=== PATIENT | female | born 1980 | race Caucasian/White ===

== ENCOUNTER 2017-04-17 14:12 | Inpatient (IN) | payer BC ==
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
[2017-04-17 17:51] VITALS: BMI 35.3
[2017-04-17] MEDS ORDERED: ACETAMINOPHEN TAB 325 MG TAB PO PRN (17:58)
[2017-04-17] MEDS ORDERED: LORazepam 1 MG TAB PO PRN (17:58)
[2017-04-17] MEDS ORDERED: MAGNESIUM HYDROXIDE 2,400 MG/10 ML CUP PO PRN (17:58)
[2017-04-17] MEDS: DIAZEPAM 5 MG TAB PO SCH (20:34)
[2017-04-17] MEDS: QUEtiapine 100 MG TAB PO SCH (20:34)
[2017-04-18] MEDS: DIAZEPAM 5 MG TAB PO SCH ×2 (09:21→20:34)
[2017-04-18] MEDS: CITALOPRAM HYDROBROMIDE 20 MG TAB PO SCH (09:21)
[2017-04-18 11:22] LABS: Basophils % (A) 0 %; CH 31.1; Eosinophils # (A) 0.1 k/uL (0-0.7); Eosinophils % (A) 2 %; HCT 42.7 % (34.0-46.0); HDW 2.58; HGB 14.5 gm/dL (11.4-16.0); Luc % (Auto) 1; Lymphocytes # (A) 1.2 k/uL (1.0-4.8); Lymphocytes % (A) 17 %; MCH 31.2 pg (25.0-35.0); MCHC 33.9 g/dL (31.0-37.0); MCV 92.1 fL (80.0-100.0); Mean Platelet Volume 7.4; Monocytes # (A) 0.5 k/uL (0-1.0); Monocytes % (A) 6 %; Neutrophils # (A) 5.2 k/uL (1.3-7.7); Neutrophils % (A) 73 %; RBC 4.63 m/uL (3.80-5.40); RDW 13.7 % (11.5-15.5); WBC 7.1 k/uL (3.8-10.6); WBC (Perox) 7.09
[2017-04-18 11:32] LABS: ALT 38 U/L (9-52); AST 35 U/L (14-36); Alkaline Phosphatase 60 U/L (38-126); Anion Gap 11 mmol/L; Bilirubin, Delta 0.2 mg/dL (0.0-0.2); Blood Urea Nitrogen 14 mg/dL (7-17); Calcium 9.7 mg/dL (8.4-10.2); Carbon Dioxide 25 mmol/L (22-30); Chloride 107 mmol/L (98-107); Glucose 75 mg/dL (74-99); Non-African American GFR(MDRD) >60 (>60 ml/min/1.73 sqM); Sodium 143 mmol/L (137-145); Total Bilirubin 0.6 mg/dL (0.2-1.3); Total Protein 7.1 g/dL (6.3-8.2)
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
--- NOTE | 2017-04-18 15:46 | P.CONS ---
History of Present Illness - Reason for Consult Consult date: 04/18/17 Medical history and physical in a patient with to the psych floor - Chief Complaint Agitation - History of Present Illness His is a 36-year-old female that is admitted to the psych floor after patient was noted to have some bizarre behavior including trying to remove her closest and agitation. Patient apparently had to be restrained on by multiple adults. At the time of my evaluation patient is more appropriate states that she did not know what she was doing at that time does state that she has a history of using marijuana Patient's main complaints include some soreness in her wrists and her left ankle However patient is able to bear weight and is able to have good range of motion in bilateral wrist Patient denies having any headaches blurry vision nausea vomiting chest pain difficulty breathing abdominal pain urinary urgency or frequency Review of Systems All systems: negative (Noted in HPI) Past Medical History Past Medical History: No Reported History Additional Past Medical History / Comment(s): 11/18/15 Pt presented to [facility] ER with believing she took too many of her Seroquels while sleep walking last nite. There were 10 seoquel missing. She had vomiting and is feeling very tired. She is admitted with clinical impression of accidental drug ingestion. History of Any Multi-Drug Resistant Organisms: None Reported Past Surgical History: Uterine Ablation Additional Past Surgical History / Comment(s): IUD placement. Past Anesthesia/Blood Transfusion Reactions: No Reported Reaction Smoking Status: Former smoker - Past Family History Mother Family Medical History: Hypertension, Osteoarthritis (OA) Additional Family Medical History / Comment(s): Mother is 63 yrs old. She also has anxiety and depression. Father Family Medical History: Coronary Artery Disease (CAD), Diabetes Mellitus, Hypertension Additional Family Medical History / Comment(s): Father is 64 yrs old. He also has back problems, cardiac stents. Medications and Allergies Home Medications Medication Instructions Recorded Confirmed Type Citalopram Hydrobromide [CeleXA] 40 mg PO DAILY 03/12/14 04/17/17 History Diazepam [Valium] 5 mg PO BID 04/17/17 04/17/17 History Allergies Allergy/AdvReac Type Severity Reaction Status Date / Time prochlorperazine edisylate Allergy Unknown Verified 04/17/17 17:55 [From Compazine] prochlorperazine maleate Allergy Unknown Verified 04/17/17 17:55 [From Compazine] Physical Exam Vitals: Vital Signs Temp Pulse Pulse Resp BP BP Pulse Ox 04/18/17 06:40 98.3 F 73 18 133/66 04/17/17 17:28 99.1 F 83 16 133/79 04/17/17 16:47 97.8 F 67 16 130/78 98 Physical exam Gen. appearance oriented 3 in no distress Neck is supple no JVD Lungs good air entry clear to auscultation no rhonchi or wheezing Heart S1-S2 heard regular rate and rhythm no murmurs appreciated Abdomen is soft nontender no organomegaly bowel sounds are intact Neurologically cranial nerves II-12 grossly intact no focal motor or sensory deficits noted Skin no abnormalities appreciated Results CBC & Chem 7: 04/18/17 10:45 04/18/17 10:45 Assessment and Plan Plan: #1 acute psychosis with suspected overuse of medication #2 bipolar depression #3 polysubstance use Plan No further workup is necessary from a medical standpoint Patient's bruises will be resolved with time No medications are necessary Patient is bearing weight no other recommendations including radiologic examinations Thank you for the consultation please call with any questions or any further complaints from the patient for reevaluation
[2017-04-18] MEDS: QUEtiapine 100 MG TAB PO SCH (20:34)
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
[2017-04-19] MEDS: DIAZEPAM 5 MG TAB PO SCH (09:12)
[2017-04-19] MEDS: CITALOPRAM HYDROBROMIDE 20 MG TAB PO SCH (09:12)
[2017-04-19] MEDS: DIAZEPAM 2 MG TAB PO SCH ×2 (11:08→21:42)
[2017-04-19] MEDS ORDERED: LITHIUM CARBONATE 300 MG CAP PO SCH (21:00)
[2017-04-19] MEDS ORDERED: PRAZOSIN 1 MG CAP PO SCH (21:00)
[2017-04-20] MEDS: DIAZEPAM 2 MG TAB PO SCH ×2 (08:44→20:48)
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
[2017-04-20] MEDS: MAG HYDROX/AL HYDROX/SIMETH 30 ML CUP PO PRN ×2 (08:45→14:47)
[2017-04-20] MEDS: PRAZOSIN 1 MG CAP PO SCH (20:47)
[2017-04-20] MEDS ORDERED: LITHIUM CARBONATE 300 MG CAP PO SCH (21:00)
[2017-04-21 06:27] VITALS: RESP 16
[2017-04-21] MEDS: DIAZEPAM 2 MG TAB PO SCH (09:36)
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
[2017-04-21] MEDS: MAG HYDROX/AL HYDROX/SIMETH 30 ML CUP PO PRN (14:40)
[2017-04-21] MEDS: PRAZOSIN 1 MG CAP PO SCH (20:53)
[2017-04-21] MEDS ORDERED: LITHIUM CARBONATE 300 MG CAP PO SCH (21:00)
[2017-04-22 06:43] VITALS: BP 108/64; PULSE 73; TEMP 97.9
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
== END 2017-04-22 10:35 | disposition home or self-care (01) | DRG 885 ==
LOC: EC 14:12 → 3MHU 16:36
PROVIDERS: ADMIT Psychiatry & Neurology Addiction Medicine; ATTEND Psychiatry & Neurology Addiction Medicine
DX: F31.10 Bipolar disorder, current episode manic without psychotic features, unspecified (principal); R45.851 Suicidal ideations; F41.9 Anxiety disorder, unspecified; F41.0 Panic disorder [episodic paroxysmal anxiety]; F10.20 Alcohol dependence, uncomplicated; F12.20 Cannabis dependence, uncomplicated; F43.10 Post-traumatic stress disorder, unspecified; G43.909 Migraine, unspecified, not intractable, without status migrainosus; F51.3 Sleepwalking [somnambulism]; E66.3 Overweight; Z91.5 Personal history of self-harm; Z87.891 Personal history of nicotine dependence; Z79.899 Other long term (current) drug therapy; Z88.8 Allergy status to other drugs, medicaments and biological substances; Z62.810 Personal history of physical and sexual abuse in childhood; Z81.8 Family history of other mental and behavioral disorders; Z82.49 Family history of ischemic heart disease and other diseases of the circulatory system
CPT/HCPCS: 80053; 80178; 80306; 81025; 82075; 82248; 84443; 85025; 99285

== ENCOUNTER → 2018-04-19 | Outpatient (CLI) | payer BC ==
--- NOTE | 2018-04-19 09:01 | US ---
EXAMINATION TYPE: US pelvis complete transvag DATE OF EXAM: 04/19/2018 COMPARISON: US 02/06/2015 CLINICAL HISTORY: N93.0 Post coital bleeding. Breakthrough bleeding with IUD TECHNIQUE: Transabdominal sonographic images of the pelvis were acquired. Transvaginal sonographic images were medically necessary to better assess the following anatomy: uterus and ovaries Date of LMP: Patient states she hasn't had a cycle in about 10 years due to IUD EXAM MEASUREMENTS: Uterus: 8.9 x 5.0 x 4.8 cm Endometrial Stripe: 0.4 cm Right Ovary: 4.2 x 2.0 x 2.1 cm Left Ovary: 4.0 x 2.8 x 2.9 cm 1. Uterus: Anteverted wnl 2. Endometrium: wnl, IUD visualized within mid/fundal portion of the endometrium 3. Right Ovary: Two cystic areas visualized, largest measuring 1.7 x 1.3 x 1.5 cm 4. Left Ovary: Cystic area visualized measuring 2.6 x 2.5 x 2.2 cm 5. Bilateral Adnexa: wnl 6. Posterior cul-de-sac: Tiny amount of free fluid visualized IMPRESSION: 1. Sonographically appropriately placed intrauterine device seen midline within the endometrium bridg ing the lower and upper uterine segments. No endometrial thickening. 2. Left ovarian cyst appears morphologically different than the prior of 2014 and is smaller in size representing a new left ovarian cyst. This is likely physiologic in a premenopausal female.
== END | disposition home or self-care (01) ==
LOC: RADUSWWP 07:13
PROVIDERS: ATTEND Obstetrics & Gynecology
DX: N83.202 Unspecified ovarian cyst, left side (principal); Z97.5 Presence of (intrauterine) contraceptive device
CPT/HCPCS: 76830; 76856

== ENCOUNTER → 2018-04-25 | Outpatient (CLI) | payer BC ==
[2018-04-25 18:04] LABS: T4, Free (Free Thyroxine) 0.89 ng/dL (0.78-2.19)
== END | disposition home or self-care (01) ==
LOC: LABWHC1 17:14
PROVIDERS: ATTEND Obstetrics & Gynecology
DX: N92.1 Excessive and frequent menstruation with irregular cycle (principal)
CPT/HCPCS: 36415; 83001; 83002; 84146; 84439; 84443

== ENCOUNTER → 2018-10-03 | Outpatient (CLI) | payer BC ==
--- NOTE | 2018-10-04 16:28 | MM ---
Reason for exam: screening (asymptomatic). Baseline mammogram. History: Taking hormonal contraceptives beginning at age 18. Physical Findings: Nurse did not find any significant physical abnormalities on exam. MG 3D Screening Mammo W/Cad Bilateral CC and MLO view(s) were taken. The breast tissue is heterogeneously dense. This may lower the sensitivity of mammography. There are benign - appearing round calcification balaterally. No discrete abnormality. These results were verbally communicated with the patient and result sheet given to the patient on 10/03/18. ASSESSMENT: Benign, BI-RAD 2 RECOMMENDATION: Routine screening mammogram of both breasts at age 42.
== END | disposition home or self-care (01) ==
LOC: RADMAMWWP 08:15
PROVIDERS: ATTEND Obstetrics & Gynecology
DX: Z12.31 Encounter for screening mammogram for malignant neoplasm of breast (principal)
CPT/HCPCS: 77063; 77067

== ENCOUNTER → 2022-04-13 | Outpatient (CLI) | payer MEDICAID, OTHER ==
--- NOTE | 2022-04-13 07:47 | USB ---
Patient History: Menarche at age 13. First Full-Term at age 29. Breast cancer. Currently using Hormonal Contraceptives, starting at age 18. Prior Study Comparison: 10/03/2018 Bilateral Screening Mammogram, [facility]. Findings: The whole breast of the right breast, the axilla of the right breast and the retroareolar of the right breast were scanned. Electronically signed and approved by: Wagner De La Vega M.D. Radiologis
== END | disposition home or self-care (01) ==
LOC: RADUSWWP 07:01
PROVIDERS: ATTEND Family Medicine
DX: N63.15 Unspecified lump in the right breast, overlapping quadrants (principal)

== ENCOUNTER → 2023-05-19 | Outpatient (CLI) | payer BC ==
--- NOTE | 2023-05-20 08:26 | MM ---
Reason for Exam: Screening (asymptomatic). Last mammogram was performed 4 year(s) and 7 month(s) ago. Patient History: Menarche at age 13. First Full-Term at age 29. Premenopausal. Breast cancer. Currently using Hormonal Contraceptives, starting at age 18. Prior Study Comparison: 10/03/2018 Bilateral Screening Mammogram, [facility]. Tissue Density: The breast tissue is heterogeneously dense. This may lower the sensitivity of mammography. Findings: Analyzed By CAD. There is no suspicious group of microcalcifications or new suspicious mass in either breast. Overall Assessment: Negative, BI-RAD 1 Management: Screening Mammogram of both breasts in 1 year. A clinical breast exam by your physician is recommended on an annual basis and results should be correlated with mammographic findings. Electronically signed and approved by: Grant Steele D.O.
== END | disposition home or self-care (01) ==
LOC: RADMAMWWP 14:27
PROVIDERS: ATTEND Family Medicine
DX: Z12.31 Encounter for screening mammogram for malignant neoplasm of breast (principal); Z78.0 Asymptomatic menopausal state
CPT/HCPCS: 77067

== ENCOUNTER 2023-08-15 11:58 | Emergency (ER) | payer BC ==
[2023-08-15 12:34] VITALS: RESP 18
[2023-08-15] MEDS ORDERED: KETOROLAC 15 MG/ML 1 ML VIAL IVP STA (12:40)
--- NOTE | 2023-08-15 12:40 | ED ---
General Adult HPI - General Chief complaint: Abdominal Pain Stated complaint: ride side and back pain Time Seen by Provider: 08/15/23 12:26 Source: patient, RN notes reviewed Mode of arrival: ambulatory Limitations: no limitations - History of Present Illness Initial comments: Patient is a pleasant 42-year-old female presenting to the emergency department with concern for right-sided rib pain. Patient did have coughing and infection that she did go to urgent care a couple weeks ago and has had some of the symptoms since that time. Symptoms seem a little bit worse this morning. Patient has most of her discomfort right posterior lateral mid ribs. Patient states discomfort does increase with deep breaths and position changes. No dyspnea. No fever. No abdominal pain. - Related Data Previous Rx's Medication Instructions Recorded [place] Carbonate 900 mg PO HS #90 cap 04/22/17 Prazosin [Minipress] 2 mg PO HS #60 cap 04/22/17 Ibuprofen [Motrin] 600 mg PO Q6HR PRN #20 tab 08/15/23 Allergies Allergy/AdvReac Type Severity Reaction Status Date / Time prochlorperazine edisylate Allergy Unknown Verified 08/15/23 12:09 [From Compazine] prochlorperazine maleate Allergy Unknown Verified 08/15/23 12:09 [From Compazine] Review of Systems ROS Statement: Those systems with pertinent positive or pertinent negative responses have been documented in the HPI. ROS Other: All systems not noted in ROS Statement are negative. Constitutional: Denies: fever Eyes: Denies: eye pain ENT: Denies: ear pain Respiratory: Reports: as per HPI. Denies: dyspnea Cardiovascular: Reports: as per HPI Endocrine: Denies: fatigue Gastrointestinal: Denies: abdominal pain, vomiting Genitourinary: Denies: dysuria, frequency, hematuria Musculoskeletal: Reports: as per HPI Past Medical History Past Medical History: No Reported History Additional Past Medical History / Comment(s): 11/18/15 Pt presented to [facility] ER with believing she took too many of her Seroquels while sleep walking last nite. There were 10 seoquel missing. She had vomiting and is feeling very tired. She is admitted with clinical impression of accidental drug ingestion. History of Any Multi-Drug Resistant Organisms: None Reported Past Surgical History: Uterine Ablation Additional Past Surgical History / Comment(s): IUD placement. Past Anesthesia/Blood Transfusion Reactions: No Reported Reaction Past Psychological History: Anxiety, Bipolar, Depression Smoking Status: Former smoker Past Alcohol Use History: Occasional Past Drug Use History: Marijuana - Past Family History Mother Family Medical History: Hypertension, Osteoarthritis (OA) Additional Family Medical History / Comment(s): Mother is 63 yrs old. She also has anxiety and depression. Father Family Medical History: Coronary Artery Disease (CAD), Diabetes Mellitus, Hypertension Additional Family Medical History / Comment(s): Father is 64 yrs old. He also has back problems, cardiac stents. General Exam Limitations: no limitations General appearance: alert, in no apparent distress Head exam: Present: normocephalic Eye exam: Present: normal appearance Neck exam: Present: normal inspection Respiratory exam: Present: normal lung sounds bilaterally, chest wall tenderness (Mild tenderness right lateral mid ribs, slightly posterior) Cardiovascular Exam: Present: regular rate, normal rhythm Expanded Peripheral pulses: 2+: Radial (R), Radial (L), Dorsalis Pedis (R), Dorsalis Pedis (L) GI/Abdominal exam: Present: soft, normal bowel sounds. Absent: distended, tenderness, guarding, rebound, rigid, pulsatile mass Extremities exam: Present: normal inspection. Absent: pedal edema, calf tenderness Neurological exam: Present: alert Psychiatric exam: Present: normal affect, normal mood Skin exam: Present: normal color Course Vital Signs 08/15/23 08/15/23 12:06 14:05 Temperature 98.0 F Pulse Rate 90 68 Respiratory 18 18 Rate Blood Pressure 122/80 125/79 O2 Sat by Pulse 99 99 Oximetry Medical Decision Making - Medical Decision Making Was pt. sent in by a medical professional or institution (, PA, SILVERSMITH APPRENTICE, urgent care, hospital, or fpc...) When possible be specific @ -No Did you speak to anyone other than the patient for history (EMS, parent, family, police, friend...)? What history was obtained from this source @ -Family is present that does confirm history Did you review nursing and triage notes (agree or disagree)? Why? @ -I reviewed and agree with nursing and triage notes Were old charts reviewed (outside hosp., previous admission, EMS record, old EKG, old radiological studies, urgent care reports/EKG's, fpc records)? Report findings @ -No old charts were reviewed Differential Diagnosis (chest pain, altered mental status, abdominal pain women, abdominal pain men, vaginal bleeding, weakness, fever, dyspnea, syncope, headache, dizziness, GI bleed, back pain, seizure, CVA, palpatations, mental health, musculoskeletal)? @ -Differential Chest Pain: Stable Angina, Unstable Angina, STEMI, NSTEMI Aortic Dissection, Pneumothorax, Musculoskeletal, Esophageal Spasm GERD, Cholecystitis, Pancreatitis, Zoster, this is not meant to be an all-inclusive list. EKG interpreted by me (3pts min.). @ - X-rays interpreted by me (1pt min.). @ -Chest x-ray shows no acute process CT interpreted by me (1pt min.). @ -None done U/S interpreted by me (1pt. min.). @ -None done What testing was considered but not performed or refused? (CT, X-rays, U/S, labs)? Why? @ -None What meds were considered but not given or refused? Why? @ -None Did you discuss the management of the patient with other professionals (professionals i.e. , PA, SILVERSMITH APPRENTICE, lab, RT, psych nurse, social economist, trademark attorney, teacher, traffic maintenance officer, ed case manager)? Give summary @ -No Was smoking cessation discussed for >3mins.? @ -No Was critical care preformed (if so, how long)? @ -No Were there social determinants of health that impacted care today? How? (Homelessness, low income, unemployed, alcoholism, drug addiction, transportation, low edu. Level, literacy, decrease access to med. care, [facility], rehab)? @ -No Was there de-escalation of care discussed even if they declined (Discuss DNR or withdrawal of care, Hospice)? DNR status @ -No What co-morbidities impacted this encounter? (DM, HTN, Smoking, COPD, CAD, Cancer, CVA, ARF, Chemo, Hep., AIDS, mental health diagnosis, sleep apnea, morbid obesity)? @ -None Was patient admitted / discharged? Hospital course, mention meds given and route, prescriptions, significant lab abnormalities, going to OR and other pertinent info. @ -Patient presents with pleuritic-type chest discomfort right lateral following probable bronchitis/viral infection. Patient improved with Toradol. Negative chest x-ray and d-dimer. Patient will be discharged with NSAIDs. Patient updated Undiagnosed new problem with uncertain prognosis? @ -No Drug Therapy requiring intensive monitoring for toxicity (Heparin, Nitro, Insulin, Cardizem)? @ -No Were any procedures done? @ -No Diagnosis/symptom? @ -Pleurisy Acute, or Chronic, or Acute on Chronic? @ -Acute Uncomplicated (without systemic symptoms) or Complicated (systemic symptoms)? @ -default Side effects of treatment? @ -No Exacerbation, Progression, or Severe Exacerbation? @ -No Poses a threat to life or bodily function? How? (Chest pain, [place], [place], pneumonia, PE, COPD, DKA, ARF, appy, cholecystitis, CVA, Diverticulitis, Homicidal, Suicidal, threat to staff... and all critical care pts) @ -No - Lab Data Lab Results 08/15/23 Range/Units 13:57 D-Dimer 0.34 (<0.60) mg/L FEU Disposition Clinical Impression: Pleurisy Disposition: HOME SELF-CARE Condition: Stable Instructions (If sedation given, give patient instructions): Pleurisy (ED) Additional Instructions: Please do follow-up with your primary care physician in the next one or 2 days for recheck. Prescriptions at the pharmacy. Return for difficulty breathing, increased pain, change or worsening symptoms or other concerns. Prescriptions: Ibuprofen [Motrin] 600 mg PO Q6HR PRN #20 tab PRN Reason: Pain Is patient prescribed a controlled substance at d/c from ED?: No Referrals: Dayna Degroot MD [Primary Care Provider] - 1-2 days Time of Disposition: 14:55
--- NOTE | 2023-08-15 13:33 | XR ---
EXAMINATION TYPE: XR chest 2V DATE OF EXAM: 08/15/2023 1:28 PM CLINICAL INDICATION:Female, 42 years old with history of Rib pain; H COMPARISON: None. TECHNIQUE: XR chest 2V Frontal and lateral views of the chest. FINDINGS: Lungs/Pleura: There is no evidence of pleural effusion, focal consolidation, or pneumothorax. Pulmonary vascularity: Unremarkable. Heart/mediastinum: Cardiomediastinal silhouette is unremarkable. Musculoskeletal: No acute osseous pathology. IMPRESSION: No acute process.
[2023-08-15 15:06] VITALS: BP 120/75; PULSE 73; TEMP 98.2
== END 2023-08-15 15:03 | disposition home or self-care (01) ==
LOC: EC 11:58
DX: R09.1 Pleurisy (principal); F12.90 Cannabis use, unspecified, uncomplicated; Z86.59 Personal history of other mental and behavioral disorders; Z87.891 Personal history of nicotine dependence; Z88.8 Allergy status to other drugs, medicaments and biological substances
CPT/HCPCS: 36415; 85379; 71046; 99284; 96374; J1885

== ENCOUNTER 2023-09-10 17:26 | Emergency (ER) | payer BC ==
[2023-09-10 17:58] VITALS: RESP 18; TEMP 98.4
[2023-09-10] MEDS ORDERED: SODIUM CHLORIDE 0.9% 1,000 ML IV ONE (18:00)
[2023-09-10 18:50] LABS: ALT 33 U/L (4-34); AST 34 U/L (14-36); African American GFR (CKD) >90 (>60 ml/min/1.73 sqM); Albumin 4.5 g/dL (3.5-5.0); Alkaline Phosphatase 61 U/L (38-126); Anion Gap 13 mmol/L; Blood Urea Nitrogen 7 mg/dL (7-17); Calcium 9.3 mg/dL (8.4-10.2); Carbon Dioxide 17 mmol/L (22-30); Chloride 107 mmol/L (98-107); Glucose 104 mg/dL (74-99); Non-African American GFR(CKD) >90 (>60 ml/min/1.73 sqM); Sodium 137 mmol/L (137-145); Total Bilirubin 0.5 mg/dL (0.2-1.3); Total Protein 7.5 g/dL (6.3-8.2)
[2023-09-10 18:52] LABS: Potassium 4.2 mmol/L (3.5-5.1)
[2023-09-10 18:55] LABS: Appearance,Urine Cloudy (Clear); Bacteria,Urine Rare /hpf; Bilirubin,Urine Negative (Negative); Blood,Urine Negative (Negative); Color,Urine Colorless; Glucose,Urine (UA) Negative (Negative); Ketones,Urine Negative (Negative); Leukocyte Esterase,Urine Moderate (Negative); Mucus,Urine Occasional /hpf; Nitrite,Urine Negative (Negative); PH, Urine 5.5 (5.0-8.0); Protein,Urine Negative (Negative); RBC,Urine 8 /hpf (0-5); Specific Gravity,Urine 1.012 (1.001-1.035); Squamous Epithelial Cell,Urine 6 /hpf (0-4); Urobilinogen,Urine <2.0 mg/dL (<2.0); WBC,Urine 4 /hpf (0-5)
[2023-09-10 18:56] LABS: Basophils # (A) 0.1 k/uL (0-0.2); Basophils % (A) 1 %; Eosinophils # (A) 0.2 k/uL (0-0.7); Eosinophils % (A) 2 %; HCT 44.1 % (34.0-46.0); HGB 15.2 gm/dL (11.4-16.0); Lymphocytes # (A) 1.7 k/uL (1.0-4.8); Lymphocytes % (A) 19 %; MCH 29.8 pg (25.0-35.0); MCHC 34.4 g/dL (31.0-37.0); MCV 86.6 fL (80.0-100.0); Mean Platelet Volume 7.6; Monocytes # (A) 0.4 k/uL (0-1.0); Monocytes % (A) 4 %; Neutrophils # (A) 6.4 k/uL (1.3-7.7); Neutrophils % (A) 73 %; Platelet Count 222 k/uL (150-450); RBC 5.09 m/uL (3.80-5.40); WBC 8.9 k/uL (3.8-10.6)
--- NOTE | 2023-09-10 19:40 | ED ---
General Adult HPI - General Chief complaint: GI Bleed Stated complaint: GI Bleed Time Seen by Provider: 09/10/23 17:51 Source: patient Mode of arrival: ambulatory Limitations: no limitations - History of Present Illness Initial comments: Patient is a 42-year-old female who presents to the emergency Department today with complaint of one month of diarrhea. Patient reports that she is recently had upper respiratory infection she was given antibiotics and 2 courses of steroids. She developed diarrhea and since that time has had multiple episodes of diarrhea daily. She reports that today she had 15 episodes of watery diarrhea while at work and towards in the day she noted that she had some bright red blood in the diarrhea. Patient also reports diffuse abdominal cramping so she decided to come the ER for evaluation. No fevers or chills. No previous GI history. No previous GI surgeries. - Related Data Previous Rx's Medication Instructions Recorded [place] Carbonate 900 mg PO HS #90 cap 04/22/17 Prazosin [Minipress] 2 mg PO HS #60 cap 04/22/17 Ibuprofen [Motrin] 600 mg PO Q6HR PRN #20 tab 08/15/23 Ondansetron Odt [Zofran Odt] 4 mg PO Q8HR PRN #12 tab 09/10/23 predniSONE [Deltasone] 40 mg PO DAILY 5 Days #10 tab 09/10/23 Allergies Allergy/AdvReac Type Severity Reaction Status Date / Time prochlorperazine edisylate Allergy Unknown Verified 09/10/23 17:54 [From Compazine] prochlorperazine maleate Allergy Unknown Verified 09/10/23 17:54 [From Compazine] Review of Systems ROS Statement: Those systems with pertinent positive or pertinent negative responses have been documented in the HPI. ROS Other: All systems not noted in ROS Statement are negative. Past Medical History Past Medical History: No Reported History Additional Past Medical History / Comment(s): 11/18/15 Pt presented to [facility] ER with believing she took too many of her Seroquels while sleep walking last nite. There were 10 seoquel missing. She had vomiting and is feeling very tired. She is admitted with clinical impression of accidental drug ingestion. History of Any Multi-Drug Resistant Organisms: None Reported Past Surgical History: Uterine Ablation Additional Past Surgical History / Comment(s): IUD placement. Past Anesthesia/Blood Transfusion Reactions: No Reported Reaction Past Psychological History: Anxiety, Bipolar, Depression Smoking Status: Former smoker Past Alcohol Use History: Occasional Past Drug Use History: Marijuana - Past Family History Mother Family Medical History: Hypertension, Osteoarthritis (OA) Additional Family Medical History / Comment(s): Mother is 63 yrs old. She also has anxiety and depression. Father Family Medical History: Coronary Artery Disease (CAD), Diabetes Mellitus, Hypertension Additional Family Medical History / Comment(s): Father is 64 yrs old. He also has back problems, cardiac stents. General Exam Limitations: no limitations General appearance: alert Eye exam: Present: normal appearance ENT exam: Present: normal exam, mucous membranes moist Respiratory exam: Absent: respiratory distress Cardiovascular Exam: Present: regular rate GI/Abdominal exam: Present: soft, tenderness, normal bowel sounds. Absent: guarding, rebound Extremities exam: Present: normal inspection Neurological exam: Present: alert, oriented X3 Psychiatric exam: Present: normal affect, normal mood Skin exam: Present: warm, dry Course Vital Signs 09/10/23 09/10/23 17:46 22:16 Temperature 98.4 F Pulse Rate 88 76 Respiratory 18 18 Rate Blood Pressure 146/92 137/85 O2 Sat by Pulse 98 98 Oximetry Medical Decision Making - Medical Decision Making Was pt. sent in by a medical professional or institution (, PA, MEMBER OF THE LEGISLATIVE COUNCIL, urgent care, hospital, or group home...) When possible be specific @ -No Did you speak to anyone other than the patient for history (EMS, parent, family, police, friend...)? What history was obtained from this source @ -No Did you review nursing and triage notes (agree or disagree)? Why? @ -I reviewed and agree with nursing and triage notes Were old charts reviewed (outside hosp., previous admission, EMS record, old EKG, old radiological studies, urgent care reports/EKG's, group home records)? Report findings @ -No old charts were reviewed Differential Diagnosis (chest pain, altered mental status, abdominal pain women, abdominal pain men, vaginal bleeding, weakness, fever, dyspnea, syncope, headache, dizziness, GI bleed, back pain, seizure, CVA, palpatations, mental health)? @ -not applicable EKG interpreted by me (3pts min.). @ -As above X-rays interpreted by me (1pt min.). @ -None done CT interpreted by me (1pt min.). @ -No free air, inflammation is noted in the right lower quadrant U/S interpreted by me (1pt. min.). @ -None done What testing was considered but not performed or refused? (CT, X-rays, U/S, labs)? Why? @ -None What meds were considered but not given or refused? Why? @ -None Did you discuss the management of the patient with other professionals (mason patterson i.e. , PA, MEMBER OF THE LEGISLATIVE COUNCIL, lab, RT, psych nurse, director of social media marketing, cartridge belt puncher, teacher, medical laboratory technical officer, case filler)? Give summary @ -No Was smoking cessation discussed for >3mins.? @ -No Was critical care preformed (if so, how long)? @ -No Were there social determinants of health that impacted care today? How? (Homelessness, low income, unemployed, alcoholism, drug addiction, transportation, low edu. Level, literacy, decrease access to med. care, long term, rehab)? @ -No Was there de-escalation of care discussed even if they declined (Discuss DNR or withdrawal of care, Hospice)? DNR status @ -No What co-morbidities impacted this encounter? (DM, HTN, Smoking, COPD, CAD, Cancer, CVA, ARF, Chemo, Hep., AIDS, mental health diagnosis, sleep apnea, morbid obesity)? @ -None Was patient admitted / discharged? Hospital course, mention meds given and route, prescriptions, significant lab abnormalities, going to OR and other pertinent info. @ Discharged Patient was seen and evaluated, patient has had weeks of crampy abdominal pain and frequent diarrhea today she noted some blood. Patient also having some nausea. Labs are obtained and are unremarkable computed tomography scan of the abdomen was obtained and is suggestive of possible Crohn's disease. These results were discussed the patient. At this time patient states she is comfortable plan for discharge home she's been dealing with this for a month already she'll follow up with GI. I advised that if GI has a long wait she can contact her insurance for a list of other GI specialist for insurance and she did start calling around for follow-up. Patient will be discharged home with some steroids help the inflammation. Return parameters were discussed with patient was discharged in stable condition. Undiagnosed new problem with uncertain prognosis? @ Yes Drug Therapy requiring intensive monitoring for toxicity (Heparin, Nitro, Insuli n, Cardizem)? @ -No Were any procedures done? @ -No Diagnosis/symptom? @ Colitis concerning for Crohn's disease Acute, or Chronic, or Acute on Chronic? @ -default Uncomplicated (without systemic symptoms) or Complicated (systemic symptoms)? @ -default Side effects of treatment? @ -No Exacerbation, Progression, or Severe Exacerbation? @ -No Poses a threat to life or bodily function? How? (Chest pain, [place], [place], pneumonia, PE, COPD, DKA, ARF, appy, cholecystitis, CVA, Diverticulitis, Homicidal, Suicidal, threat to staff... and all critical care pts) @ -No - Lab Data Result diagrams: 09/10/23 18:04 09/10/23 18:04 Lab Results 09/10/23 09/10/23 09/10/23 Range/Units 18:04 18:04 18:04 WBC 8.9 (3.8-10.6) k/uL RBC 5.09 (3.80-5.40) m/uL Hgb 15.2 (11.4-16.0) gm/dL Hct 44.1 (34.0-46.0) % MCV 86.6 (80.0-100.0) fL MCH 29.8 (25.0-35.0) pg MCHC 34.4 (31.0-37.0) g/dL RDW 13.0 (11.5-15.5) % Plt Count 222 (150-450) k/uL MPV 7.6 Neutrophils % 73 % Lymphocytes % 19 % Monocytes % 4 % Eosinophils % 2 % Basophils % 1 % Neutrophils # 6.4 (1.3-7.7) k/uL Lymphocytes # 1.7 (1.0-4.8) k/uL Monocytes # 0.4 (0-1.0) k/uL Eosinophils # 0.2 (0-0.7) k/uL Basophils # 0.1 (0-0.2) k/uL Sodium 137 (137-145) mmol/L Potassium 4.2 (3.5-5.1) mmol/L Chloride 107 (98-107) mmol/L Carbon Dioxide 17 L (22-30) mmol/L Anion Gap 13 mmol/L BUN 7 (7-17) mg/dL Creatinine 0.67 (0.52-1.04) mg/dL Est GFR (CKD-EPI)AfAm >90 (>60 ml/min/1.73 sqM) Est GFR (CKD-EPI)NonAf >90 (>60 ml/min/1.73 sqM) Glucose 104 H (74-99) mg/dL Calcium 9.3 (8.4-10.2) mg/dL Total Bilirubin 0.5 (0.2-1.3) mg/dL AST 34 (14-36) U/L ALT 33 (4-34) U/L Alkaline Phosphatase 61 (38-126) U/L Total Protein 7.5 (6.3-8.2) g/dL Albumin 4.5 (3.5-5.0) g/dL Urine Color Colorless Urine Appearance Cloudy H (Clear) Urine pH 5.5 (5.0-8.0) Ur Specific [place] 1.012 (1.001-1.035) Urine Protein Negative (Negative) Urine Glucose (UA) Negative (Negative) Urine Ketones Negative (Negative) Urine Blood Negative (Negative) Urine Nitrite Negative (Negative) Urine Bilirubin Negative (Negative) Urine Urobilinogen <2.0 (<2.0) mg/dL Ur Leukocyte Esterase Moderate H (Negative) Urine RBC 8 H (0-5) /hpf Urine WBC 4 (0-5) /hpf Ur Squamous Epith Cells 6 H (0-4) /hpf Urine Bacteria Rare H (None) /hpf Urine Mucus Occasional H (None) /hpf Disposition Clinical Impression: Diarrhea, Terminal ileitis Disposition: HOME SELF-CARE Condition: Stable Instructions (If sedation given, give patient instructions): Crohn Disease (ED) Prescriptions: predniSONE [Deltasone] 40 mg PO DAILY 5 Days #10 tab Ondansetron Odt [Zofran Odt] 4 mg PO Q8HR PRN #12 tab PRN Reason: Nausea Is patient prescribed a controlled substance at d/c from ED?: No Referrals: Dayna Degroot MD [Primary Care Provider] - 1-2 days
[2023-09-10] MEDS ORDERED: ONDANSETRON 4 MG/2 ML VIAL IVP STA (19:44)
--- NOTE | 2023-09-10 20:18 | CT ---
EXAMINATION TYPE: CT abdomen pelvis w con CT DLP: 1078.8 mGycm, Automated exposure control for dose reduction was used. DATE OF EXAM: 09/10/2023 8:06 PM COMPARISON: none CLINICAL INDICATION:Female, 42 years old with history of abdominal pain; Lower abdominal pain and val sea TECHNIQUE: Axial CT of the ;CT abdomen pelvis w con;Sagittal and coronal reformats were created on a separate workstation. Contrast used:100 mL of Isovue 300 with IV Contrast, (none if empty) Oral contrast used: without Oral Contrast (none if empty) FINDINGS: LOWER CHEST: Unremarkable ABDOMEN LIVER: Unremarkable GALLBLADDER AND BILE DUCTS: Unremarkable. PANCREAS: Unremarkable. SPLEEN: Unremarkable. ADRENAL GLANDS: Unremarkable. KIDNEYS AND URETERS: No evidence of hydronephrosis or renal calculus. The ureters are unremarkable. PELVIS BLADDER: Unremarkable REPRODUCTIVE: Intrauterine device seen within the endometrium. Left ovarian cyst measuring up to 3.7 cm ABDOMEN & PELVIS STOMACH AND BOWEL: Circumferential wall thickening of the terminal ileum with fatty deposition and hy peremic mucosa series 201 image 54. No evidence of bowel obstruction. Small hiatal hernia. The append ix is normal. PERITONEUM/RETROPERITONEUM: No evidence of pneumoperitoneum or free fluid. VASCULATURE: No evidence of aortic aneurysm. MUSCULOSKELETAL: No acute osseous abnormalities LYMPH NODES: No gross evidence for lymphadenopathy. SOFT TISSUE/ABDOMINAL WALL: Fat-containing umbilical hernia. IMPRESSION: 1. Submucosal fat deposition of the terminal ileum with hyperemic mucosa. Correlate for signs and sy mptoms of Crohn's disease/enteritis. The appendix normal. No additional findings to suggest acute ant erior abdominal process. 2. IUD in appropriate position. 3. Left ovarian cyst measuring 3.7 cm.
[2023-09-10 22:41] VITALS: BP 137/85; PULSE 76
== END 2023-09-10 22:16 | disposition home or self-care (01) ==
LOC: EC 17:26
DX: K50.00 Crohn's disease of small intestine without complications (principal); N83.202 Unspecified ovarian cyst, left side; F12.90 Cannabis use, unspecified, uncomplicated; Z88.8 Allergy status to other drugs, medicaments and biological substances; Z86.59 Personal history of other mental and behavioral disorders; Z87.891 Personal history of nicotine dependence
CPT/HCPCS: 99285; 96374; 96361; 36415; 80053; 85025; 81001; 74177; J2405; Q9967

== ENCOUNTER → 2023-10-05 | Outpatient (CLI) | payer BC ==
[2023-10-05 19:46] LABS: Hepatitis B Core IgM Nonreactive; Hepatitis B Surface Antigen Nonreactive
== END | disposition home or self-care (01) ==
LOC: LABWHC1 15:16
PROVIDERS: ATTEND Internal Medicine
DX: K50.90 Crohn's disease, unspecified, without complications (principal)
CPT/HCPCS: 36415; 86480; 86704; 86705; 86706; 87340

== ENCOUNTER → 2023-10-06 | Outpatient (CLI) | payer BC | END | disposition home or self-care (01) | LOC: LABPRL 07:58 | PROVIDERS: ATTEND Internal Medicine | DX: K50.90 Crohn's disease, unspecified, without complications (principal) | CPT/HCPCS: 83993 ==

== ENCOUNTER 2023-10-12 15:30 | Emergency (ER) | payer BC ==
[2023-10-12 15:46] VITALS: RESP 18
[2023-10-12 16:20] LABS: Basophils # (A) 0.1 k/uL (0-0.2); Basophils % (A) 1 %; Eosinophils # (A) 0.3 k/uL (0-0.7); Eosinophils % (A) 3 %; HCT 42.6 % (34.0-46.0); HGB 15.5 gm/dL (11.4-16.0); Lymphocytes # (A) 2.2 k/uL (1.0-4.8); Lymphocytes % (A) 23 %; MCH 31.1 pg (25.0-35.0); MCHC 36.5 g/dL (31.0-37.0); MCV 85.1 fL (80.0-100.0); Mean Platelet Volume 7.8; Monocytes # (A) 0.5 k/uL (0-1.0); Monocytes % (A) 5 %; Neutrophils # (A) 6.5 k/uL (1.3-7.7); Neutrophils % (A) 67 %; Platelet Count 319 k/uL (150-450); RDW 13.5 % (11.5-15.5); WBC 9.6 k/uL (3.8-10.6)
[2023-10-12 16:30] LABS: INR 0.9 (<1.2); Prothrombin Time 10.3 sec (10.0-12.5)
--- NOTE | 2023-10-12 16:39 | ED ---
Abdominal Pain HPI - General Source: patient, RN notes reviewed Mode of arrival: EMS Limitations: no limitations <Naga Garcia - Last Filed: 10/12/23 16:38> - General Source: patient, RN notes reviewed Mode of arrival: EMS Limitations: no limitations <Mora Hutton - Last Filed: 10/13/23 16:06> - General Source: RN notes reviewed, old records reviewed Mode of arrival: EMS Limitations: no limitations - History of Present Illness MD Complaint: abdominal pain -: days(s) Location: suprapubic Radiation: suprapubic Migration to: suprapubic Severity: severe Severity scale (1-10): 9 Consistency: intermittent Improves With: nothing Worsens With: nothing Associated Symptoms: nausea, vomiting <Roger Grey - Last Filed: 10/18/23 16:07> - General Chief Complaint: Abdominal Pain Stated Complaint: Abd Pain Time Seen by Provider: 10/12/23 17:00 - History of Present Illness Initial Comments: 42 year old female presents to the emergency department for evaluation of lower abdominal pain. Patient states that this started today. She reports that she has recently been experiencing lower abdominal pain and was evaluated in the emergency department about one month ago for this same thing. She states that today it seems to be worse and slightly different in character than previously. She does report bright red blood in the stool which has been going on for around 2 months. She has recent follow-up with gastroenterology and is scheduled for colonoscopy 1 week from today. She denies fever, chills. Admits to nausea and vomiting. (Mora Hutton) This 42-year-old female to the emergency department for evaluation of severe abdominal pain, positive nausea positive vomiting with history of similar event. (Roger Grey) - Related Data Previous Rx's Medication Instructions Recorded [place] Carbonate 900 mg PO HS #90 cap 04/22/17 Prazosin [Minipress] 2 mg PO HS #60 cap 04/22/17 Ibuprofen [Motrin] 600 mg PO Q6HR PRN #20 tab 08/15/23 Ondansetron Odt [Zofran Odt] 4 mg PO Q8HR PRN #12 tab 09/10/23 predniSONE [Deltasone] 40 mg PO DAILY 5 Days #10 tab 09/10/23 Allergies Allergy/AdvReac Type Severity Reaction Status Date / Time prochlorperazine edisylate Allergy Unknown Verified 09/10/23 17:54 [From Compazine] prochlorperazine maleate Allergy Unknown Verified 09/10/23 17:54 [From Compazine] Review of Systems ROS Other: All systems not noted in ROS Statement are negative. <JoseNaga - Last Filed: 10/12/23 16:38> ROS Other: All systems not noted in ROS Statement are negative. <Mora Hutton - Last Filed: 10/13/23 16:06> ROS Other: All systems not noted in ROS Statement are negative. <Roger Grey - Last Filed: 10/18/23 16:07> ROS Statement: Those systems with pertinent positive or pertinent negative responses have been documented in the HPI. Past Medical History Past Medical History: No Reported History Additional Past Medical History / Comment(s): 11/18/15 Pt presented to [facility] ER with believing she took too many of her Seroquels while sleep walking last nite. There were 10 seoquel missing. She had vomiting and is feeling very tired. She is admitted with clinical impression of accidental drug ingestion. chrohns disease History of Any Multi-Drug Resistant Organisms: None Reported Past Surgical History: Uterine Ablation Additional Past Surgical History / Comment(s): IUD placement. Past Anesthesia/Blood Transfusion Reactions: No Reported Reaction Past Psychological History: Anxiety, Bipolar, Depression Smoking Status: Former smoker Past Alcohol Use History: Occasional Past Drug Use History: Marijuana - Past Family History Mother Family Medical History: Hypertension, Osteoarthritis (OA) Additional Family Medical History / Comment(s): Mother is 63 yrs old. She also has anxiety and depression. Father Family Medical History: Coronary Artery Disease (CAD), Diabetes Mellitus, Hypertension Additional Family Medical History / Comment(s): Father is 64 yrs old. He also has back problems, cardiac stents. <JoseNaga - Last Filed: 10/12/23 16:38> General Exam Limitations: no limitations <JoseNaga - Last Filed: 10/12/23 16:38> Limitations: no limitations General appearance: alert, in no apparent distress Head exam: Present: atraumatic, normocephalic, normal inspection Eye exam: Present: normal appearance, PERRL, EOMI. Absent: scleral icterus, conjunctival injection, periorbital swelling ENT exam: Present: normal exam, mucous membranes moist Neck exam: Present: normal inspection. Absent: tenderness, meningismus, lymphadenopathy Respiratory exam: Present: normal lung sounds bilaterally. Absent: respiratory distress, wheezes, rales, rhonchi, stridor Cardiovascular Exam: Present: regular rate, normal rhythm, normal heart sounds. Absent: systolic murmur, diastolic murmur, rubs, gallop, clicks GI/Abdominal exam: Present: soft, tenderness (lower abd), normal bowel sounds. Absent: distended, guarding, rebound, rigid Extremities exam: Present: normal inspection, full ROM, normal capillary refill. Absent: tenderness, pedal edema, joint swelling, calf tenderness Back exam: Present: normal inspection Neurological exam: Present: alert, oriented X3 Psychiatric exam: Present: normal affect, normal mood Skin exam: Present: warm, dry, intact, normal color. Absent: rash <Mora Hutton - Last Filed: 10/13/23 16:06> General appearance: alert, in no apparent distress Head exam: Present: atraumatic, normocephalic, normal inspection Eye exam: Present: normal appearance, PERRL, EOMI. Absent: scleral icterus, conjunctival injection, periorbital swelling ENT exam: Present: normal exam, mucous membranes moist Neck exam: Present: normal inspection. Absent: tenderness, meningismus, lymphadenopathy Respiratory exam: Present: normal lung sounds bilaterally. Absent: respiratory distress, wheezes, rales, rhonchi, stridor Cardiovascular Exam: Present: regular rate, normal rhythm, normal heart sounds. Absent: systolic murmur, diastolic murmur, rubs, gallop, clicks GI/Abdominal exam: Present: soft, normal bowel sounds. Absent: distended, tenderness, guarding, rebound, rigid Extremities exam: Present: normal inspection, full ROM, normal capillary refill. Absent: tenderness, pedal edema, joint swelling, calf tenderness Back exam: Present: normal inspection Neurological exam: Present: alert, oriented X3, CN II-XII intact Psychiatric exam: Present: normal affect, normal mood Skin exam: Present: warm, dry, intact, normal color. Absent: rash <Roger Grey - Last Filed: 10/18/23 16:07> Course <Roger Grey - Last Filed: 10/18/23 16:07> Vital Signs 10/12/23 10/12/23 10/12/23 15:38 20:30 22:12 Temperature 97.9 F 98.5 F Pulse Rate 78 66 61 Respiratory 18 18 18 Rate Blood Pressure 123/88 135/80 127/82 O2 Sat by Pulse 99 98 100 Oximetry - Reevaluation(s) Reevaluation #1: 10/12/23 22:07 Medical records is reviewed (Roger Grey) Reevaluation #2: 10/12/23 22:08 Patient symptoms are unchanged (Roger Grey) Reevaluation #3: 10/12/23 22:08 Symptoms are improved here in the ER (Roger Grey) Reevaluation #4: 10/12/23 22:08 Was pt. sent in by a medical professional or institution (, PA, CONTINUOUS MINER OPERATOR, urgent care, hospital, or alf...) When possible be specific @ -no Did you speak to anyone other than the patient for history (EMS, parent, family, police, friend...)? What history was obtained from this source @ -no Did you review nursing and triage notes (agree or disagree)? Why? @ -agree Are old charts reviewed (outside hosp., previous admission, EMS record, old EKG, old radiological studies, urgent care reports/EKG's, alf records)? Report findings @ -yes Differential Diagnosis (chest pain, altered mental status, abdominal pain women, abdominal pain men, vaginal bleeding, weakness, fever, dyspnea, syncope, headache, dizziness, GI bleed, back pain, seizure, CVA, palpatations, mental health, musculoskeletal)? @ -prior EKG interpreted by me (3pts min.). @ -yes X-rays interpreted by me (1pt min.). @ -no CT interpreted by me (1pt min.). @ -yes positive significant ovarian cyst U/S interpreted by me (1pt. min.). @ -no What testing was considered but not performed or refused? (CT, X-rays, U/S, labs)? Why? @ -none What meds were considered but not given or refused? Why? @ -none Did you discuss the management of the patient with other professionals (professionals i.e. DrCallie, PA, CONTINUOUS MINER OPERATOR, lab, RT, psych nurse, forensic social worker, senior environmental practice leader, teacher, security officers and guards, shoe parts caser)? Give summary @ -no Was smoking cessation discussed for >3mins.? @ -no Was critical care preformed (if so, how long)? @ -no Were there social determinants of health that impacted care today? How? (Homelessness, low income, unemployed, alcoholism, drug addiction, transportation, low edu. Level, literacy, decrease access to med. care, penitentiary, rehab)? @ -none Was there de-escalation of care discussed even if they declined (Discuss DNR or withdrawal of care, Hospice)? DNR status @ -no What co-morbidities impacted this encounter? (DM, HTN, Smoking, COPD, CAD, Cancer, CVA, ARF, Chemo, Hep., AIDS, mental health diagnosis, sleep apnea, morbid obesity)? @ -none Was patient admitted / discharged? Hospital course, mention meds given and route, prescriptions, significant lab abnormalities, going to OR and other pert inent info. @ - 42 female to the emergency department for evaluation of severe abdominal pain similar symptoms happened about a month ago. Patient's pain is well- controlled here in the ER she found of significant ovarian cyst, patient be discharged home Discharge Undiagnosed new problem with uncertain prognosis? @ -no Drug Therapy requiring intensive monitoring for toxicity (Heparin, Nitro, Ins ulin, Cardizem)? @ -no Were any procedures done? @ -no Diagnosis/symptom? @ -Abdominal pain and ovarian cyst Acute, or Chronic, or Acute on Chronic? @ -Acute Uncomplicated (without systemic symptoms) or Complicated (systemic symptoms)? @ -Complicated Side effects of treatment? @ -no Exacerbation, Progression, or Severe Exacerbation? @ -exacerbation Poses a threat to life or bodily function? How? (Chest pain, [place], [place], pneumonia, PE, COPD, DKA, ARF, appy, cholecystitis, CVA, Diverticulitis, Homicidal, Suicidal, threat to staff... and all critical care pts) @ -no (Roger Grey) Reevaluation #5: 10/12/23 22:08 Differential Abdominal Pain Women: Appendicitis, Cholecystitis, diverticulosis, ischemic bowel, pancreatitis, h epatitis, UTI, gastroenteritis, AAA, incarcerated hernia, bowel obstruction, constipation, inflammatory bowel, hepatitis, peptic ulcer disease, splenic infarction, perforated viscus, vulvitis, ovarian torsion, PID, kidney stone, placenta abruption, this is not meant to be an all-inclusive list (Roger Grey) Medical Decision Making - Lab Data Result diagrams: 10/12/23 16:03 <Naga Garcia - Last Filed: 10/12/23 16:38> - Lab Data Result diagrams: 10/12/23 17:12 10/12/23 17:12 <Mora Hutton - Last Filed: 10/13/23 16:06> - Lab Data Result diagrams: 10/12/23 17:12 10/12/23 17:12 - EKG Data -: EKG Interpreted by Me (EKG is sinus 67. 1:30 QRS 73 QTC 386) - Radiology Data Radiology results: report reviewed (CT of the abdomen and Pelvis negative for acute disease), image reviewed <Roger Grey - Last Filed: 10/18/23 16:07> - Medical Decision Making This is a pleasant 42-year-old female presents to emergency family several episodes of vomiting and bloody diarrhea over the past 2 days. Patient describing abdominal cramping in lower abdomen. Recently diagnosed with Crohn's disease. History [facility] gastroenterology. Visual Physical Exam Vital signs reviewed General: Well-appearing, nontoxic, no acute distress. Head: Normocephalic, atraumatic Eyes: PERRLA, EOMI ENT: Airway patent Chest: Nonlabored breathing Skin: No visual rash, normal skin tone Neuro: Alert and oriented 3 Musculoskeletal: No gross abnormalities Naga Garcia PA-C (Naga Garcia) Was pt. sent in by a medical professional or institution (NIMA Clements, CONTINUOUS MINER OPERATOR, urgent care, hospital, or alf...) When possible be specific @ -No Did you speak to anyone other than the patient for history (EMS, parent, family, police, friend...)? What history was obtained from this source @ -No Did you review nursing and triage notes (agree or disagree)? Why? @ -I reviewed and agree with nursing and triage notes Were old charts reviewed (outside hosp., previous admission, EMS record, old EKG, old radiological studies, urgent care reports/EKG's, alf records)? Report findings @ -No old charts were reviewed Differential Diagnosis (chest pain, altered mental status, abdominal pain women, abdominal pain men, vaginal bleeding, weakness, fever, dyspnea, syncope, headache, dizziness, GI bleed, back pain, seizure, CVA, palpatations, mental health, musculoskeletal)? @ -Differential Abdominal Pain Women: Appendicitis, Cholecystitis, diverticulosis, ischemic bowel, pancreatitis, hepatitis, UTI, gastroenteritis, AAA, incarcerated hernia, bowel obstruction, constipation, inflammatory bowel, hepatitis, peptic ulcer disease, splenic infarction, perforated viscus, vulvitis, ovarian torsion, PID, kidney stone, placenta abruption, this is not meant to be an all-inclusive list EKG interpreted by me (3pts min.). @ -EKG@1550 shows sinus rhythm rate 67, [place] 140, QRS 93, QTQTc [id number] X-rays interpreted by me (1pt min.). @ -None done CT interpreted by me (1pt min.). @ -CT pending at time of signout. U/S interpreted by me (1pt. min.). @ -None done What testing was considered but not performed or refused? (CT, X-rays, U/S, labs)? Why? @ -None What meds were considered but not given or refused? Why? @ -None Did you discuss the management of the patient with other professionals (professionals i.e. , PA, CONTINUOUS MINER OPERATOR, lab, RT, psych nurse, forensic social worker, senior environmental practice leader, teacher, security officers and guards, shoe parts caser)? Give summary @ -No Was smoking cessation discussed for >3mins.? @ -No Was critical care preformed (if so, how long)? @ -No Were there social determinants of health that impacted care today? How? (Homelessness, low income, unemployed, alcoholism, drug addiction, t ransportation, low edu. Level, literacy, decrease access to med. care, penitentiary, rehab)? @ -No Was there de-escalation of care discussed even if they declined (Discuss DNR or withdrawal of care, Hospice)? DNR status @ -No What co-morbidities impacted this encounter? (DM, HTN, Smoking, COPD, CAD, Cancer, CVA, ARF, Chemo, Hep., AIDS, mental health diagnosis, sleep apnea, morbid obesity)? @ -None Was patient admitted / discharged? Hospital course, mention meds given and route, prescriptions, significant lab abnormalities, going to OR and other pertinent info. @ -Patient presented to the emergency department for evaluation of lower abdominal pain. She states that today his pain is much worse and different in character than her typical pain. She admits to nausea and vomiting. Denies fever, chills. She follows with gastroenterology and is scheduled for colonos copy in 1 week. Laboratory studies are obtained. CBC shows WBC 10.9, hemoglobin 14.9, hematocrit 42.6; CMP shows sodium 1:30, potassium 3.5, chloride 111, creatinine 0.67, initial troponin 0.016 which was slightly hemolyzed and therefore a repeat was obtained which was less than 0.012, negative quantitative hCG; UA shows negative nitrate, negative leukocyte esterase, 2+ ketones. Patient given a liter of normal saline and 2 mg of morphine. He received Zofran on the ambulance which she states improved her nausea. Discussed CT versus managing intense at this time. Patient wishes to undergo computed tomography scan. Case was signed out to Dr. Grey pending CT. Undiagnosed new problem with uncertain prognosis? @ -No Drug Therapy requiring intensive monitoring for toxicity (Heparin, Nitro, Insulin, Cardizem)? @ -No Were any procedures done? @ -No Diagnosis/symptom? @ -default Acute, or Chronic, or Acute on Chronic? @ -default Uncomplicated (without systemic symptoms) or Complicated (systemic symptoms)? @ -default Side effects of treatment? @ -No Exacerbation, Progression, or Severe Exacerbation? @ -No Poses a threat to life or bodily function? How? (Chest pain, [place], [place], pneumonia, PE, COPD, DKA, ARF, appy, cholecystitis, CVA, Diverticulitis, Homicidal, S uicidal, threat to staff... and all critical care pts) @ -No (Mora Hutton) 42 female to the emergency department for evaluation of persistent abdominal chente n with nausea no vomiting no travel history no sick contacts no other complaints. evaluation of severe abdominal pain similar symptoms happened about a month ago. Patient's pain is well-controlled here in the ER she found of significant ovarian cyst, Patient's pain is controlled patient can be discharged home (Roger Grey) - Lab Data Lab Results 10/12/23 10/12/23 10/12/23 Range/Units 16:03 16:03 16:03 WBC 9.6 (3.8-10.6) k/uL RBC 5.00 (3.80-5.40) m/uL Hgb 15.5 (11.4-16.0) gm/dL Hct 42.6 (34.0-46.0) % MCV 85.1 (80.0-100.0) fL MCH 31.1 (25.0-35.0) pg MCHC 36.5 (31.0-37.0) g/dL RDW 13.5 (11.5-15.5) % Plt Count 319 (150-450) k/uL MPV 7.8 Neutrophils % 67 % Lymphocytes % 23 % Monocytes % 5 % Eosinophils % 3 % Basophils % 1 % Neutrophils # 6.5 (1.3-7.7) k/uL Lymphocytes # 2.2 (1.0-4.8) k/uL Monocytes # 0.5 (0-1.0) k/uL Eosinophils # 0.3 (0-0.7) k/uL Basophils # 0.1 (0-0.2) k/uL ESR PT 10.3 (10.0-12.5) sec INR 0.9 (<1.2) APTT 19.2 L (22.0-30.0) sec Sodium (137-145) mmol/L Potassium (3.5-5.1) mmol/L Chloride (98-107) mmol/L Carbon Dioxide (22-30) mmol/L Anion Gap mmol/L BUN (7-17) mg/dL Creatinine (0.52-1.04) mg/dL Est GFR (CKD-EPI)AfAm (>60 ml/min/1.73 sqM) Est GFR (CKD-EPI)NonAf (>60 ml/min/1.73 sqM) Glucose (74-99) mg/dL Calcium (8.4-10.2) mg/dL Total Bilirubin (0.2-1.3) mg/dL AST (14-36) U/L ALT (4-34) U/L Alkaline Phosphatase (38-126) U/L Troponin I 0.016 (0.000-0.034) ng/mL C-Reactive Protein (<1.0) mg/dL Total Protein (6.3-8.2) g/dL Albumin (3.5-5.0) g/dL Amylase (30-110) U/L Lipase (23-300) U/L HCG, Quant mIU/mL Urine Color Urine Appearance (Clear) Urine pH (5.0-8.0) Ur Specific Lemmon (1.001-1.035) Urine Protein (Negative) Urine Glucose (UA) (Negative) Urine Ketones (Negative) Urine Blood (Negative) Urine Nitrite (Negative) Urine Bilirubin (Negative) Urine Urobilinogen (<2.0) mg/dL Ur Leukocyte Esterase (Negative) Blood Type Blood Type Recheck Bld Type Recheck Status Antibody Screen Spec Expiration Date 10/12/23 10/12/23 10/12/23 Range/Units 17:12 17:12 17:25 WBC 10.9 H (3.8-10.6) k/uL RBC 4.96 (3.80-5.40) m/uL Hgb 14.9 (11.4-16.0) gm/dL Hct 42.6 (34.0-46.0) % MCV 85.8 (80.0-100.0) fL MCH 30.0 (25.0-35.0) pg MCHC 35.0 (31.0-37.0) g/dL RDW 13.3 (11.5-15.5) % Plt Count 320 (150-450) k/uL MPV 7.1 Neutrophils % 70 % Lymphocytes % 21 % Monocytes % 5 % Eosinophils % 2 % Basophils % 1 % Neutrophils # 7.6 (1.3-7.7) k/uL Lymphocytes # 2.2 (1.0-4.8) k/uL Monocytes # 0.5 (0-1.0) k/uL Eosinophils # 0.3 (0-0.7) k/uL Basophils # 0.1 (0-0.2) k/uL ESR Cancelled PT (10.0-12.5) sec INR (<1.2) APTT (22.0-30.0) sec Sodium 138 (137-145) mmol/L Potassium 3.5 (3.5-5.1) mmol/L Chloride 111 H (98-107) mmol/L Carbon Dioxide 19 L (22-30) mmol/L Anion Gap 8 mmol/L BUN 8 (7-17) mg/dL Creatinine 0.67 (0.52-1.04) mg/dL Est GFR (CKD-EPI)AfAm >90 (>60 ml/min/1.73 sqM) Est GFR (CKD-EPI)NonAf >90 (>60 ml/min/1.73 sqM) Glucose 84 (74-99) mg/dL Calcium 9.2 (8.4-10.2) mg/dL Total Bilirubin 0.4 (0.2-1.3) mg/dL AST 21 (14-36) U/L ALT 18 (4-34) U/L Alkaline Phosphatase 60 (38-126) U/L Troponin I (0.000-0.034) ng/mL C-Reactive Protein 0.7 (<1.0) mg/dL Total Protein 6.6 (6.3-8.2) g/dL Albumin 4.1 (3.5-5.0) g/dL Amylase 68 (30-110) U/L Lipase 142 (23-300) U/L HCG, Quant <2.4 mIU/mL Urine Color Colorless Urine Appearance Clear (Clear) Urine pH 7.5 (5.0-8.0) Ur Specific Lemmon 1.013 (1.001-1.035) Urine Protein Negative (Negative) Urine Glucose (UA) Negative (Negative) Urine Ketones 2+ H (Negative) Urine Blood Negative (Negative) Urine Nitrite Negative (Negative) Urine Bilirubin Negative (Negative) Urine Urobilinogen <2.0 (<2.0) mg/dL Ur Leukocyte Esterase Negative (Negative) Blood Type Blood Type Recheck Bld Type Recheck Status Antibody Screen Spec Expiration Date 10/12/23 10/12/23 Range/Units 17:45 18:53 WBC (3.8-10.6) k/uL RBC (3.80-5.40) m/uL Hgb (11.4-16.0) gm/dL Hct (34.0-46.0) % MCV (80.0-100.0) fL MCH (25.0-35.0) pg MCHC (31.0-37.0) g/dL RDW (11.5-15.5) % Plt Count (150-450) k/uL MPV Neutrophils % % Lymphocytes % % Monocytes % % Eosinophils % % Basophils % % Neutrophils # (1.3-7.7) k/uL Lymphocytes # (1.0-4.8) k/uL Monocytes # (0-1.0) k/uL Eosinophils # (0-0.7) k/uL Basophils # (0-0.2) k/uL ESR PT (10.0-12.5) sec INR (<1.2) APTT (22.0-30.0) sec Sodium (137-145) mmol/L Potassium (3.5-5.1) mmol/L Chloride (98-107) mmol/L Carbon Dioxide (22-30) mmol/L Anion Gap mmol/L BUN (7-17) mg/dL Creatinine (0.52-1.04) mg/dL Est GFR (CKD-EPI)AfAm (>60 ml/min/1.73 sqM) Est GFR (CKD-EPI)NonAf (>60 ml/min/1.73 sqM) Glucose (74-99) mg/dL Calcium (8.4-10.2) mg/dL Total Bilirubin (0.2-1.3) mg/dL AST (14-36) U/L ALT (4-34) U/L Alkaline Phosphatase (38-126) U/L Troponin I <0.012 (0.000-0.034) ng/mL C-Reactive Protein (<1.0) mg/dL Total Protein (6.3-8.2) g/dL Albumin (3.5-5.0) g/dL Amylase (30-110) U/L Lipase (23-300) U/L HCG, Quant mIU/mL Urine Color Urine Appearance (Clear) Urine pH (5.0-8.0) Ur Specific [place] (1.001-1.035) Urine Protein (Negative) Urine Glucose (UA) (Negative) Urine Ketones (Negative) Urine Blood (Negative) Urine Nitrite (Negative) Urine Bilirubin (Negative) Urine Urobilinogen (<2.0) mg/dL Ur Leukocyte Esterase (Negative) Blood Type A Positive Blood Type Recheck A Pos Bld Type Recheck Status No Antibody Screen NEGATIVE Spec Expiration Date 10/15/2023 3892 Disposition <Naga Garcia - Last Filed: 10/12/23 16:38> <Mora Hutton - Last Filed: 10/13/23 16:06> Is patient prescribed a controlled substance at d/c from ED?: No Time of Disposition: 22:00 <Roger Grey - Last Filed: 10/18/23 16:07> Clinical Impression: Gastroenteritis, Ovarian cyst Disposition: HOME SELF-CARE Condition: Good Instructions (If sedation given, give patient instructions): Ovarian Cyst (ED) Referrals: Dayna Degroot MD [Primary Care Provider] - 1-2 days
[2023-10-12 16:42] LABS: Partial Thromboplastin Time 19.2 sec (22.0-30.0)
[2023-10-12 17:37] LABS: Basophils # (A) 0.1 k/uL (0-0.2); Basophils % (A) 1 %; Eosinophils # (A) 0.3 k/uL (0-0.7); Eosinophils % (A) 2 %; HCT 42.6 % (34.0-46.0); HGB 14.9 gm/dL (11.4-16.0); Lymphocytes # (A) 2.2 k/uL (1.0-4.8); Lymphocytes % (A) 21 %; MCV 85.8 fL (80.0-100.0); Mean Platelet Volume 7.1; Monocytes # (A) 0.5 k/uL (0-1.0); Monocytes % (A) 5 %; Neutrophils # (A) 7.6 k/uL (1.3-7.7); Neutrophils % (A) 70 %; Platelet Count 320 k/uL (150-450); RBC 4.96 m/uL (3.80-5.40); RDW 13.3 % (11.5-15.5); WBC 10.9 k/uL (3.8-10.6)
[2023-10-12] MEDS ORDERED: SODIUM CHLORIDE 0.9% 1,000 ML IV ONE (17:38)
[2023-10-12] MEDS ORDERED: MORPHINE SULFATE 2 MG/ML SYRINGE IVP ONE (17:38)
[2023-10-12 17:42] LABS: Appearance,Urine Clear (Clear); Bilirubin,Urine Negative (Negative); Blood,Urine Negative (Negative); Color,Urine Colorless; Glucose,Urine (UA) Negative (Negative); Ketones,Urine 2+ (Negative); PH, Urine 7.5 (5.0-8.0); Protein,Urine Negative (Negative); Specific Gravity,Urine 1.013 (1.001-1.035)
[2023-10-12 17:43] LABS: Leukocyte Esterase,Urine Negative (Negative); Nitrite,Urine Negative (Negative); Urobilinogen,Urine <2.0 mg/dL (<2.0)
[2023-10-12 17:50] LABS: ALT 18 U/L (4-34); AST 21 U/L (14-36); African American GFR (CKD) >90 (>60 ml/min/1.73 sqM); Albumin 4.1 g/dL (3.5-5.0); Alkaline Phosphatase 60 U/L (38-126); Amylase 68 U/L (30-110); Anion Gap 8 mmol/L; Blood Urea Nitrogen 8 mg/dL (7-17); C Reactive Protein 0.7 mg/dL (<1.0); Calcium 9.2 mg/dL (8.4-10.2); Carbon Dioxide 19 mmol/L (22-30); Chloride 111 mmol/L (98-107); Glucose 84 mg/dL (74-99); Lipase 142 U/L (23-300); Non-African American GFR(CKD) >90 (>60 ml/min/1.73 sqM); Potassium 3.5 mmol/L (3.5-5.1); Sodium 138 mmol/L (137-145); Total Bilirubin 0.4 mg/dL (0.2-1.3); Total Protein 6.6 g/dL (6.3-8.2)
[2023-10-12 18:03] LABS: HCG,Quantitative Serum <2.4 mIU/mL
--- NOTE | 2023-10-12 20:33 | CT ---
EXAMINATION TYPE: CT abdomen pelvis w con DATE OF EXAM: 10/12/2023 COMPARISON: 09/10/2023 HISTORY: Lower abdominal pain, dx with chron's last week CT DLP: 944.7 mGycm Automated exposure control for dose reduction was used. TECHNIQUE: Helical acquisition of images was performed from the lung bases through the pelvis. CONTRAST: Performed without Oral Contrast and with IV Contrast, patient injected with 100ml mL of Isovue 300. FINDINGS: Lung bases are clear. The gallbladder is normal is no gallstones or biliary ductal dilatation. There is no gallbladder dist ention or wall thickening. There is no focal mass or organomegaly involving the liver, pancreas, spleen or adrenal glands. There is no solid renal mass or hydronephrosis. The caliber the abdominal aorta is normal. The bowel loops are normal in caliber is no dilatation or obstruction. No inflammatory changes are id entified in the mesenteric fat or bowel wall. Thickening in the terminal ileum in the prior study is not apparent on the current study. There is no free intraperitoneal air or fluid. There is a multiloculated left ovarian cysts measuring approximately 5 cm. It has increased in size f rom 3.8 cm on the prior study and Further evaluation with pelvic ultrasound is recommended on a nonem ergent basis. There is an IUD within the uterus. There is no free fluid within the pelvis or abscess. There is no adenopathy. The osseous structures are intact. IMPRESSION: 1. No acute changes within the abdomen. 2. Multiloculated left ovarian which has increased in size compared to the prior study as described a nasir.. Pelvic ultrasound is recommended on nonemergent basis for further evaluation. 3. IUD device in the uterus.
[2023-10-12 21:23] VITALS: TEMP 98.5
[2023-10-12 22:30] VITALS: BP 127/82; PULSE 61
== END 2023-10-12 22:20 | disposition home or self-care (01) ==
LOC: EC 15:30
DX: K52.9 Noninfective gastroenteritis and colitis, unspecified (principal); N83.202 Unspecified ovarian cyst, left side; F12.90 Cannabis use, unspecified, uncomplicated; Z88.8 Allergy status to other drugs, medicaments and biological substances; Z87.891 Personal history of nicotine dependence
CPT/HCPCS: 36415; 93005; 86900; 86901; 80053; 82150; 83690; 84484; 85025; 85610; 85730; 86850; 86140; 81003; 84702; 74177; 99285; 96374; 96361; J2270; Q9967; 85652

== ENCOUNTER → 2024-05-23 | Outpatient (CLI) | payer BC ==
--- NOTE | 2024-05-30 10:57 | MM ---
Reason for Exam: Screening (asymptomatic). Last screening mammogram was performed 12 month(s) ago. Patient History: Menarche at age 13. First Full-Term at age 29. Premenopausal. Breast cancer. Currently using Hormonal Contraceptives, starting at age 18. Last menstrual period: 05/23/2024 Prior Study Comparison: 10/03/2018 Bilateral Screening Mammogram, [facility]. 05/19/2023 Bilateral MG screening mammo w CAD, [facility]. Tissue Density: The breasts are heterogeneously dense, which may obscure small masses. Findings: Analyzed By CAD. Right breast: There is no suspicious group of microcalcifications or new suspicious mass. Left breast: There is no suspicious group of microcalcifications or new suspicious mass. Overall Assessment: Negative, BI-RAD 1 Management: Screening Mammogram of both breasts in [address] [facility] will attempt to contact patient to return for supplemental views and ultrasound if indicated. Patient should continue monthly self-breast exams. A clinical breast exam by your physician is recommended on an annual basis. This exam should not preclude additional follow-up of suspicious palpable abnormalities. Note on Ludivina scores and lifetime risk: 1. A Ludivina score greater than 3% is considered moderate risk. If this is the case, consider specialist referral to assess eligibility for a risk reducing agent. 2. If overall lifetime risk for the development of breast cancer is 20% or higher, the patient may qualify for future screening with alternating mammogram and breast MRI. Electronically signed and approved by: Bryn Barraza DO
== END | disposition home or self-care (01) ==
LOC: RADMAMWWP 06:51
PROVIDERS: ATTEND Family Medicine
DX: Z12.31 Encounter for screening mammogram for malignant neoplasm of breast
CPT/HCPCS: 77063; 77067